=== PATIENT | female | born 2005 | race Hispanic/Latino ===

== ENCOUNTER 2023-04-01 12:23 | Emergency (ER) | payer BC, SELFPAY ==
[2023-04-01 13:35] LABS: Absolute Lymphocytes (CBC) 1.5 K/uL (0.7-4.9); Lymphocytes % 16.3 % (15.3-44.8); MCV 82.4 fL (80-100); MPV 8.6 fL (7.6-11.3); RBC Red Blood Cell Count 3.63 M/uL (3.86-4.86)
[2023-04-01 14:15] LABS: Albumin 3.5 g/dL (3.4-5.0); Bilirubin Total 0.2 mg/dL (0.2-1.0); Potassium 4.3 mEq/L (3.5-5.1); Protein, Total 6.6 g/dL (6.4-8.2); Troponin High Sensitivity 3.1 pg/mL (<58.9)
--- NOTE | 2023-04-01 14:52 | ER ---
Nurse's Notes [facility] Name: Juju Reis Age: 17 yrs Sex: Female : 2005 Arrival Date: 04/01/2023 Time: 12:23 Bed 15 Private MD: Diagnosis: Syncope Presentation: 04/01 12:58 Chief complaint: EMS states: Near syncopal episode while standing at school. Pt felt mb9 light headed, sat in a chair, slipped on wet floor and slid to the ground, denies injury. BGL 97, HR 50s, SB on 12 lead. NS infusing to 20g RAC upon arrival. Coronavirus screen: At this time, the client does not indicate any symptoms associated with coronavirus-19. Ebola Screen: No symptoms or risks identified at this time. Initial Sepsis Screen: Does the patient meet any 2 criteria? No. Patient's initial sepsis screen is negative. Does the patient have a suspected source of infection? No. Patient's initial sepsis screen is negative. Risk Assessment: Do you want to hurt yourself or someone else? Patient reports no desire to harm self or others. Onset of symptoms was April 01, 2023. 12:58 Method Of Arrival: EMS: [facility] mb9 12:58 Acuity: ALEXIS 3 mb9 Triage Assessment: 13:00 General: Appears in no apparent distress. comfortable. nj1 13:00 Pain: Denies pain. nj1 Historical: - Allergies: 13:00 No Known Allergies; mb9 - Home Meds: 13:00 Lexapro Oral [Active]; mb9 - PMHx: 13:00 Anxiety; Depression; mb9 - PSHx: 13:00 None; mb9 - Immunization history:: Adult Immunizations up to date. - Social history:: Smoking status: Patient denies any tobacco usage or history of. - Family history:: not pertinent. Screenin:21 [facility] ED Fall Risk Assessment (Adult) History of falling in the last 3 months, nj1 including since admission No falls in past 3 months (0 pts) Confusion or Disorientation No (0 pts) Intoxicated or Sedated No (0 pts) Impaired Gait No (0 pts) Mobility Assist Device Used No (0 pt) Altered Elimination No (0 pt) Score/Fall Risk Level 0 - 2 = Low Risk Oriented to surroundings, Maintained a safe environment, Hourly rounding (assess needs \T\ fall precautionary measures) done. Abuse screen: Denies threats or abuse. Denies injuries from another. Nutritional screening: No deficits noted. Tuberculosis screening: No symptoms or risk factors identified. Assessment: 13:00 General: Appears in no apparent distress. comfortable, Behavior is calm, cooperative, nj1 appropriate for age. 13:00 Neuro: Level of Consciousness is awake, alert, obeys commands, Oriented to person, nj1 place, time, situation. Cardiovascular: Patient's skin is warm and dry. Respiratory: Airway is patent Respiratory effort is even, unlabored. 14:00 Reassessment: Patient appears in no apparent distress at this time. Patient and/or nj1 family updated on plan of care and expected duration. Pain level reassessed. Patient is alert, oriented x 3, equal unlabored respirations, skin warm/dry/pink. Patient denies pain at this time. Patient states feeling better. Patient states symptoms have improved. 14:53 Reassessment: Patient appears in no apparent distress at this time. Patient and/or nj1 family updated on plan of care and expected duration. Pain level reassessed. Patient is alert, oriented x 3, equal unlabored respirations, skin warm/dry/pink. Patient denies pain at this time. Vital Signs: 12:58 BP 104 / 48; Pulse 56; Resp 16; Temp 98; Pulse Ox 99% on R/A; Weight 55.34 kg; Height 5 mb9 ft. 8 in. ; Pain 0/10; 14:00 BP 94 / 56; Pulse 55; Resp 16; Pulse Ox 100% on R/A; nj1 14:52 BP 107 / 55; Pulse 56; Resp 16; Pulse Ox 100% on R/A; nj1 12:58 Body Mass Index 18.55 (55.34 kg, 172.72 cm) mb9 12:58 Pain Scale: Adult mb9 ED Course: 12:51 Patient arrived in ED. eb 12:53 Chris Griffin MD is Attending Physician. rt 13:00 Triage completed. mb9 13:00 Patient has correct armband on for positive identification. Bed in low position. Call [facility] light in reach. 13:01 Arm band placed on. mb9 13:20 Nichole Winter RN is Primary Nurse. nj1 15:07 No provider procedures requiring assistance completed. IV discontinued, intact, nj1 bleeding controlled. Administered Medications: No medications were administered Medication: 15:07 VIS not applicable for this client. nj1 Outcome: 14:51 Discharge ordered by . rt 15:07 Discharged to home ambulatory, with family. nj1 15:07 Condition: stable 15:07 Discharge instructions given to patient, family, Instructed on discharge instructions, follow up and referral plans. Demonstrated understanding of instructions, follow-up care. 15:08 Patient left the ED. nj1 Signatures: Flores Covington Mary Beth, RN RN mb9 Chris Griffin MD MD rt Nichole Winter RN RN nj1 Corrections: (The following items were deleted from the chart) 13:01 13:00 PMHx: Depressive disorder; delores mb9
--- NOTE | 2023-04-01 14:52 | EDPHYS ---
Physician Documentation [facility] Name: Juju Reis Age: 17 yrs Sex: Female : 2005 Arrival Date: 04/01/2023 Time: 12:23 Bed 15 Private MD: ED Physician Chris Griffin HPI: 04/01 13:24 This 17 yrs old Female presents to ER via EMS with complaints of Syncope. rt 13:24 Patient presents to the ED with a syncopal event. The patient was cutting hair at the [employer] when she became acutely lightheaded, he is down to the ground, had a brief loss of consciousness without head trauma. This episode was brief, she is back to baseline, states she has no complaints currently. Denied any chest pain, shortness of breath. Denies other acute complaints. Patient states that this is happened to her before, last was about 4 years ago.. Historical: - Allergies: 13:00 No Known Allergies; mb9 - Home Meds: 13:00 Lexapro Oral [Active]; mb9 - PMHx: 13:00 Anxiety; Depression; mb9 - PSHx: 13:00 None; mb9 - Immunization history:: Adult Immunizations up to date. - Social history:: Smoking status: Patient denies any tobacco usage or history of. - Family history:: not pertinent. ROS: 13:24 Constitutional: Negative for fever, chills, and weight loss, Cardiovascular: Negative rt for chest pain, palpitations, and edema, Respiratory: Negative for shortness of breath, cough, wheezing, and pleuritic chest pain, Abdomen/GI: Negative for abdominal pain, nausea, vomiting, diarrhea, and constipation, MS/Extremity: Negative for injury and deformity, Skin: Negative for injury, rash, and discoloration, Psych: Negative for depression, anxiety, suicide ideation, homicidal ideation, and hallucinations. 13:24 Neuro: Positive for syncope, near syncope. Exam: 13:24 Constitutional: This is a well developed, well nourished patient who is awake, alert, rt and in no acute distress. Head/Face: Normocephalic, atraumatic. Chest/axilla: Normal chest wall appearance and motion. Nontender with no deformity. No lesions are appreciated. Cardiovascular: Regular rate and rhythm with a normal S1 and S2. No gallops, murmurs, or rubs. Normal PMI, no JVD. No pulse deficits. Respiratory: Lungs have equal breath sounds bilaterally, clear to auscultation and percussion. No rales, rhonchi or wheezes noted. No increased work of breathing, no retractions or nasal flaring. Abdomen/GI: Soft, non-tender, with normal bowel sounds. No distension or tympany. No guarding or rebound. No evidence of tenderness throughout. Skin: Warm, dry with normal turgor. Normal color with no rashes, no lesions, and no evidence of cellulitis. MS/ Extremity: Pulses equal, no cyanosis. Neurovascular intact. Full, normal range of motion. Neuro: Awake and alert, GCS 15, oriented to person, place, time, and situation. Cranial nerves II-XII grossly intact. Motor strength 5/5 in all extremities. Sensory grossly intact. Cerebellar exam normal. Normal gait. Psych: Awake, alert, with orientation to person, place and time. Behavior, mood, and affect are within normal limits. 13:24 ECG was reviewed by the Attending Physician. Vital Signs: 12:58 BP 104 / 48; Pulse 56; Resp 16; Temp 98; Pulse Ox 99% on R/A; Weight 55.34 kg; Height 5 mb9 ft. 8 in. ; Pain 0/10; 14:00 BP 94 / 56; Pulse 55; Resp 16; Pulse Ox 100% on R/A; nj1 14:52 BP 107 / 55; Pulse 56; Resp 16; Pulse Ox 100% on R/A; nj1 12:58 Body Mass Index 18.55 (55.34 kg, 172.72 cm) mb9 12:58 Pain Scale: Adult mb9 MDM: 12:53 Patient medically screened. rt 15:19 Differential Diagnosis Dysrhythmia, symptomatic anemia, electrolyte disturbance, rt vasovagal syncope, dehydration. Data reviewed: vital signs, nurses notes, lab test result(s), EKG. Consideration of Admission/Observation Escalation of care including admission/observation considered. Test considered but Not performed: CT: Patient is PE RC negative, does not require CT angiogram to rule out pulmonary embolism. Counseling: I had a detailed discussion with the patient and/or guardian regarding: the historical points, exam findings, and any diagnostic results supporting the discharge/admit diagnosis, lab results, the need for outpatient follow up, to return to the emergency department if symptoms worsen or persist or if there are any questions or concerns that arise at home. Response to treatment: the patient's symptoms have resolved after treatment. 04/01 13:02 Order name: CBC with Diff; Complete Time: 14:09 rt 04/01 13:02 Order name: CMP; Complete Time: 14:17 rt 04/01 13:02 Order name: Troponin High Sensitivity; Complete Time: 14:17 rt 04/01 13:02 Order name: Magnesium; Complete Time: 14:17 rt 04/01 13:02 Order name: Test, Serum; Complete Time: 14: rt 04/01 13:02 Order name: EKG; Complete Time: 13: rt 04/01 13:02 Order name: EKG - Nurse/Tech; Complete Time: 13:21 rt EC:24 Rate is 51 beats/min. Rhythm is regular, Sinus bradycardia with No ectopy. QRS [place] is rt Normal. CO interval is normal. QRS interval is normal. QT interval is normal. No Q waves. T waves are Normal. No ST changes noted. Interpreted by me. Administered Medications: No medications were administered Disposition Summary: 04/01/23 14:51 Discharge Ordered Location: Home rt Problem: new rt Symptoms: are resolved rt Condition: Stable rt Diagnosis - Syncope rt Followup: rt - With: Private Physician - When: 2 - 3 days - Reason: Discharge Instructions: - Discharge Summary Sheet rt - Syncope rt Forms: - Medication Reconciliation Form rt - Thank You Letter rt - Antibiotic Education rt - Prescription Opioid Use rt Signatures: Dispatcher [employer] Arianna Al RN RN [email or web address] Chris Griffin MD MD rt Corrections: (The following items were deleted from the chart) 13:01 13:00 PMHx: Depressive disorder; delores estrella
[2023-04-01 15:27] VITALS: TEMP 98
[2023-04-01 15:28] VITALS: O2SAT 100
[2023-04-01 15:30] VITALS: BP 107/55
--- NOTE | 2023-04-03 14:21 | EKG ---
Test Date: 2023-04-01 Test Time: 13:18:08 Throw Out Clerk: PRAVEEN MEASUREMENT RESULTS: Intervals: Rate: 51 NH: 148 QRSD: 98 QT: 394 QTc: 363 [place]: P: 35 NH: 148 QRS: 68 T: 35 INTERPRETIVE STATEMENTS: Sinus bradycardia Otherwise normal ECG No previous ECG available for comparison Electronically Signed On 04-03-23 14:17:47 CDT by Michael Barclay
== END 2023-04-01 15:08 | disposition home or self-care (01) ==
LOC: ER 12:23
DX: R55 Syncope and collapse (principal); F41.9 Anxiety disorder, unspecified; F32.A Depression, unspecified
CPT/HCPCS: 36415; 80053; 83735; 84484; 84703; 85025; 93005; 99283

== ENCOUNTER 2024-02-26 15:29 | Emergency (ER) | payer BC ==
[2024-02-26 16:35] LABS: Absolute Basophils 0.1 K/uL (0-0.5); Absolute Eosinophils 0.1 K/uL (0-0.5); Absolute Lymphocytes (CBC) 1.7 K/uL (0.7-4.9); Absolute Monocytes 0.8 K/uL (0.1-1.3); Absolute Neutrophil 5.7 K/uL (1.8-8.0); Basophils % 0.7 % (0-1.3); Eosinophils % 1.4 % (0-4.4); Hematocrit 35.7 % (36.0-45.0); Hemoglobin 11.9 g/dL (12.0-15.0); Lymphocytes % 20.4 % (15.3-44.8); MCH 27.2 pg (27.0-35.0); MCHC 33.2 g/dL (32.0-36.0); MPV 7.8 fL (7.6-11.3); Monocytes % 9.5 % (3.3-12.3); Nucleated Red Blood Cells % 0.4 % (0-0); Platelets 366 thou/uL (152-406); RBC Red Blood Cell Count 4.35 M/uL (3.86-4.86); Red Cell Distribution Width 16.8 % (12.1-15.2)
[2024-02-26 16:49] LABS: PT Prothrombin Time 13.3 SECONDS (9.5-12.5); PTT, Activated Partial Thromb 35.1 SECONDS (24.3-36.9); Protime INR 1.22
[2024-02-26 17:02] LABS: ALT/SGPT 20 U/L (13-56); AST/SGOT 8 U/L (15-37); Albumin 3.9 g/dL (3.4-5.0); Albumin/Globulin Ratio 1.1 (1.1-1.8); Alkaline Phosphatase 63 U/L (45-117); Anion Gap 6.9 mEq/L (5.0-15.0); BUN Blood Urea Nitrogen 13 mg/dL (7-18); Bicarbonate 25 mEq/L (21-32); Bilirubin Direct 0.1 mg/dL (0-0.2); Bilirubin Indirect, Calculated 0.4 mg/dL (0.2-0.8); Bilirubin Total 0.5 mg/dL (0.2-1.0); Globulin 3.5 g/dL (2.3-3.5); Glomerular Filtration Rate 81 ml/min (=/>90); Glucose Level 93 mg/dL (74-106); Potassium 3.9 mEq/L (3.5-5.1); Protein, Total 7.4 g/dL (6.4-8.2); Sodium Level 136 mEq/L (136-145)
--- NOTE | 2024-02-26 17:27 | ER ---
Nurse's Notes [facility] Name: Juju Reis Age: 18 yrs Sex: Female : 2005 Arrival Date: 02/26/2024 Time: 15:29 Bed 14 Private MD: Diagnosis: bipolar disorder with triston and associated psychotic features Presentation: 02/25 15:45 Chief complaint: Patient states: feels like she is having schizophrenia and her DID is nj1 acting up for about a week. States she cannot be in crowds, feels like they are coming to get her. Denies verbal, visual hallucinations. Denies SI/HI. 15:45 Coronavirus screen: Vaccine status: Patient reports receiving the 2nd dose of the covid nj1 vaccine. Ebola Screen: Patient denies travel to an Ebola-affected area in the 21 days before illness onset. Initial Sepsis Screen: Does the patient meet any 2 criteria? No. Patient's initial sepsis screen is negative. Does the patient have a suspected source of infection? No. Patient's initial sepsis screen is negative. Risk Assessment: Do you want to hurt yourself or someone else? Patient reports no desire to harm self or others. Onset of symptoms was January 2024. 15:45 Method Of Arrival: Ambulatory [facility] 15:45 Acuity: ALEXIS 3 nj1 Historical: - Allergies: 15:58 No Known Allergies; nj1 - PMHx: 15:58 Anxiety; Depression; Bipolar disorder; DID; nj1 - Immunization history:: Client reports receiving the 2nd dose of the Covid vaccine. - Infectious Disease History:: Denies. - Social history:: Smoking status: Patient reports the use of cigarette tobacco products, one a day. Screenin:31 [facility] ED Fall Risk Assessment (Adult) History of falling in the last 3 months, as6 including since admission No falls in past 3 months (0 pts) Confusion or Disorientation No (0 pts) Intoxicated or Sedated No (0 pts) Impaired Gait No (0 pts) Mobility Assist Device Used No (0 pt) Altered Elimination No (0 pt) Score/Fall Risk Level 0 - 2 = Low Risk Oriented to surroundings, Maintained a safe environment, Educated pt \\T\\ family on fall prevention, incl call for assistance when getting out of bed, Assessed \\T\\ reinforced patient's understanding of fall precautions. Abuse screen: Denies threats or abuse. Denies injuries from another. Nutritional screening: No deficits noted. Tuberculosis screening: No symptoms or risk factors identified. Assessment: 16:18 General: Appears in no apparent distress. comfortable, Behavior is calm, cooperative. as6 Pain: Denies pain. Neuro: Level of Consciousness is awake, alert, obeys commands, Oriented to person, place, time, situation. Cardiovascular: Capillary refill < 3 seconds Patient's skin is warm and dry. Respiratory: Respiratory effort is even, unlabored, Respiratory pattern is regular, symmetrical. GI: No deficits noted. No signs and/or symptoms were reported involving the gastrointestinal system. : No deficits noted. No signs and/or symptoms were reported regarding the genitourinary system. EENT: No deficits noted. No signs and/or symptoms were reported regarding the EENT system. Derm: Skin is intact, is healthy with good turgor. Musculoskeletal: Circulation, motion, and sensation intact. 17:56 General: report given to Juliann . as6 Psych: 15:45 [place] Suicide Severity Screening: In the past month, have you wished you were as6 or wished you could go to sleep and not wake up? Patient responds "No." "In the past month, have you actually had any thoughts of killing yourself?" Patient responds "no." "In your lifetime, have you ever done anything, started to do anything, or prepared to do anything to end your life?" Patient responds "no.". 15:45 Subjective: Patient's mood is appropriate Delusions are denied, Hallucinations are as6 auditory, visual, Having thoughts of denies SI or HI. Objective: Patient is cooperative, Speech is normal, Affect is appropriate, Patient has mutilated themselves by none noted. Interventions: not needed at this time. Safety Checks: Personal items have been removed. Door is open. Visitors are present. Pt denies substance abuse. Commitment: Patient will be a voluntary commitment. Vital Signs: 15:45 BP 153 / 86; Pulse 76; Resp 18; Temp 97.4; Pulse Ox 98% on R/A; Weight 58.97 kg; Height nj1 5 ft. 8 in. ; 18:38 BP 147 / 64; Pulse 71; Resp 18; Temp 98.4; Pulse Ox 100% ; as6 15:45 Body Mass Index 19.77 (58.97 kg, 172.72 cm) or1 ED Course: 15:35 Patient arrived in ED. im 15:44 Ashlyn Barr PA-C is PHCP. sb4 15:44 Kandy Heard MD is Attending Physician. sb4 15:58 Triage completed. nj1 16:03 Arm band placed on left wrist. nj1 16:04 Gerald Cannon, MARCO is Primary Nurse. as6 16:29 Inserted saline lock: 20 gauge in right antecubital area, using aseptic technique. as6 Blood collected. 16:30 Acetaminophen Sent. as6 16:30 Basic Metabolic Panel Sent. as6 16:30 CBC with Diff Sent. as6 16:30 ETOH Level Sent. as6 16:30 PT-INR Sent. as6 16:30 Hepatic Function Sent. as6 16:30 Salicylate Sent. as6 16:30 Ptt, Activated Sent. as6 16:33 Bed in low position. as6 17:00 faxed patient clinicals to the following facilities in the attempt to find placement/ [facility]. 17:10 Test, Urine Sent. as6 17:10 Urinalysis w/ reflexes Sent. as6 17:10 Urine Drug Screen Sent. as6 17:56 connected Juliann Peng from [facility] for patient transfer consultation. eb 18:08 administrative approval given by Janeen Roche/ patient has been accepted to [facility]/ Dr. Flowers has accepted the patient in transfer without conference with Ashlyn Austin/. 18:30 [facility] called for transport. eb 18:38 Provided Education on: need for transfer. as6 18:38 No provider procedures requiring assistance completed. as6 18:40 IV discontinued, intact, bleeding controlled, No redness/swelling at site. Pressure as6 dressing applied. Administered Medications: No medications were administered Medication: 16:31 VIS not applicable for this client. as6 Outcome: 17:26 ER care complete, transfer ordered by . sb4 18:38 Condition: stable as6 18:38 Instructed on the need for transfer, 18:52 Transferred by ground EMS Transfer form completed. as6 18:54 Patient left the ED. as6 Signatures: Flores Covington Ashby, MARCO RN as6 Ashlyn Barr PA-C PAGely sb4 Nichole Winter RN RN nj1 Yola Peralta Corrections: (The following items were deleted from the chart) 16:33 15:45 [place] Suicide Severity Screening: In the past month, have you wished you were as6 or wished you could go to sleep and not wake up? Patient responds "No." "In the past month, have you actually had any thoughts of killing yourself?" Patient responds "no." "In your lifetime, have you ever done anything, started to do anything, or prepared to do anything to end your life?" Patient responds "no." as6
--- NOTE | 2024-02-26 17:27 | EDPHYS ---
Physician Documentation [facility] Name: Juju Ries Age: 18 yrs Sex: Female : 2005 Arrival Date: 02/26/2024 Time: 15:29 Bed 14 Private MD: ED Physician Kandy Heard HPI: 02/25 17:20 This 18 yrs old Female presents to ER via Ambulatory with complaints of Psych sb4 Problem. 17:20 patient with history of bipolar disorder, dissociative identity disorder, and sb4 schizophrenia presents with paranoia, depression, and aggressive behavior. she has not been taking her medications for 1.5 months now because she felt like they were not helping. she has not seen her psychiatrist since. family states that she has been acting very abnormally- suddenly quit her job, hallucinating, and exhibiting aggressive behavior. patient is not aware that she in the ER during my assessment, thinks she's at the psychiatrist's office. denies any suicidal or homicidal ideation. Historical: - Allergies: 15:58 No Known Allergies; nj1 - PMHx: 15:58 Anxiety; Depression; Bipolar disorder; DID; nj1 - Immunization history:: Client reports receiving the 2nd dose of the Covid vaccine. - Infectious Disease History:: Denies. - Social history:: Smoking status: Patient reports the use of cigarette tobacco products, one a day. ROS: 17:20 Constitutional: Negative for fever, chills, and weight loss, sb4 17:20 Psych: Positive for anxiety, depression, visual hallucinations, 17:20 All other systems are negative, Exam: 17:20 Constitutional: This is a well developed, well nourished patient who is awake, alert, sb4 and in no acute distress. Head/Face: Normocephalic, atraumatic. Eyes: Extra-ocular motions intact. Periorbital areas with no swelling, redness, or edema. ENT: Mucous membranes moist. Skin: Warm, dry with normal turgor. Normal color with no rashes, no lesions, and no evidence of cellulitis. MS/ Extremity: Pulses equal, no cyanosis. Neurovascular intact. Full, normal range of motion. Neuro: Awake and alert, GCS 15, oriented to person, place, time, and situation. Motor strength 5/5 in all extremities. Sensory grossly intact. 17:20 Psych: Behavior/mood is cooperative, delirious, Affect is calm, Oriented to person, time, Not oriented to place, Patient has no thoughts/intents to harm self or others. Judgement / Insight is impaired. Vital Signs: 15:45 BP 153 / 86; Pulse 76; Resp 18; Temp 97.4; Pulse Ox 98% on R/A; Weight 58.97 kg; Height nj1 5 ft. 8 in. ; 18:38 BP 147 / 64; Pulse 71; Resp 18; Temp 98.4; Pulse Ox 100% ; as6 15:45 Body Mass Index 19.77 (58.97 kg, 172.72 cm) nj1 MDM: 15:54 Patient medically screened. sb4 17:20 Data reviewed: vital signs, nurses notes, lab test result(s), EKG, radiologic studies. sb4 Counseling: I had a detailed discussion with the patient and/or guardian regarding the historical points, exam findings, and any diagnostic results supporting the discharge/admit diagnosis, lab results, the need to transfer to another facility, [facility] does not immediately have the required specialist. 02/25 16:13 Order name: Acetaminophen; Complete Time: 17:11 4 02/25 16:13 Order name: Basic Metabolic Panel; Complete Time: 17:11 02/25 16:13 Order name: CBC with Diff; Complete Time: 16:56 02/25 16:13 Order name: ETOH Level; Complete Time: 17:11 4 02/25 16:13 Order name: Hepatic Function; Complete Time: 17:11 02/25 16:13 Order name: PT-INR; Complete Time: 16:56 02/25 16:13 Order name: Test, Urine; Complete Time: 17:29 4 02/25 16:13 Order name: Ptt, Activated; Complete Time: 16:56 4 02/25 16:13 Order name: Salicylate; Complete Time: 17:11 4 02/25 16:13 Order name: Urinalysis w/ reflexes; Complete Time: 17:30 sb4 02/25 16:13 Order name: Urine Drug Screen; Complete Time: 17:30 02/25 16:13 Order name: EKG - Nurse/Tech; Complete Time: 16:46 sb4 02/25 16:13 Order name: IV Saline Lock; Complete Time: 16:30 sb4 02/25 16:13 Order name: Labs collected and sent; Complete Time: 16:30 sb4 02/25 16:13 Order name: Suicide Screening ([place]); Complete Time: 16:30 sb4 EC:56 Rate is 65 beats/min. Rhythm is regular, Sinus arrythmia. NV interval is normal at 140 sb4 msec. QRS interval is normal at 90 msec. QT interval is normal at 368 msec. Clinical impression: No evidence of ischemia. Interpreted by me. Reviewed by me. Administered Medications: No medications were administered Disposition: 18:00 I reviewed the patient's care provided by the Advanced Practice Provider and agree with gb1 the diagnosis and treatment plan. Disposition Summary: 02/26/24 17:26 Transfer Ordered Notes: Transfer Location: Psych Facility sb4 Reason: Higher level of care sb4 Condition: Fair sb4 Problem: new sb4 Symptoms: are unchanged sb4 Accepting Physician: psychi(02/26/24 18:54) as6 Diagnosis - bipolar disorder with triston and associated psychotic features sb4 Forms: - Medication Reconciliation Form sb4 - SBAR form sb4 Signatures: Dispatcher [employer] Gerald Bean RN RN as6 Ashlyn Barr PA-C PA-C sb4 Nichole Winter RN RN nj1 Kandy Heard MD MD gb1 Corrections: (The following items were deleted from the chart) 18:54 17:26 psychi sb4 as6
[2024-02-26 17:29] LABS: Sqamous Epithelial <5 /HPF (None Seen); Urine Bacteria None Seen /HPF (<20); Urine Bilirubin NEGATIVE (Negative); Urine Blood Negative (Negative); Urine Clarity Extremely Turbid (Clear); Urine Color Light-Yellow (Yellow); Urine Culture Reflex Order NOT NEEDED; Urine Glucose NEGATIVE (Negative); Urine Ketones NEGATIVE (Negative); Urine Microscopic Reflex YN ORDER UMIC; Urine Mucus Slight /HPF (None Seen); Urine Nitrite NEGATIVE (Negative); Urine Protein NEGATIVE (Negative); Urine RBC <5 /HPF (None Seen); Urine Urobilinogen 1+ (Normal); Urine WBC <5 /HPF (<5)
[2024-02-26 17:30] LABS: Barbiturates NEGATIVE (NEGATIVE); Benzodiazepines POSITIVE (NEGATIVE); Cocaine NEGATIVE (NEGATIVE); METHAMPHETAM NEGATIVE (NEGATIVE); Methadone NEGATIVE (NEGATIVE); Opiates NEGATIVE (NEGATIVE); Phencyclidine NEGATIVE (NEGATIVE); THC Cannibis POSITIVE (NEGATIVE)
[2024-02-26 19:04] VITALS: BP 147/64; TEMP 98.4; O2SAT 100
--- NOTE | 2024-02-27 12:56 | EKG ---
Test Date: 2024-02-26 Test Time: 16:43:47 Supply Chain Consultant: MEASUREMENT RESULTS: Intervals: Rate: 65 SD: 140 QRSD: 90 QT: 368 QTc: 382 [place]: P: 52 SD: 140 QRS: 87 T: 44 INTERPRETIVE STATEMENTS: Normal sinus rhythm with sinus arrhythmia Nonspecific T wave abnormality Abnormal ECG Compared to ECG 04/01/2023 13:18:08 T-wave abnormality now present Sinus bradycardia no longer present Electronically Signed On 02-27-24 12:54:50 CDT by Michael Barclay
== END 2024-02-26 18:54 ==
LOC: ER 15:29
DX: F31.2 Bipolar disorder, current episode manic severe with psychotic features (principal); F17.210 Nicotine dependence, cigarettes, uncomplicated
CPT/HCPCS: 36415; 80048; 80076; 80143; 80179; 80307; 81001; 81025; 82077; 85025; 85610; 85730; 93005; 99285

== ENCOUNTER 2024-10-09 20:36 | Emergency (ER) | payer OTHER ==
--- OUTSIDE RECORDS SUMMARY | 2024-10-09 20:38 | XMS REPORT | Continuity of Care Document ---
Author Name Unknown Address [address] [facility]. [address] th[address] Address 1200 [facility]. 1 [address] [place] [address] Care Team Providers Care Portable Sawyer Name Role Phone LAB90 Attending Clinician Unavailable CLARE LANDRUM Attending Clinician Unavailable ANTONIO PAREDES Attending Clinician Unavailable Payers Payer Name Policy Type Policy Number Effective Date Expirati on Date Source [facility] KP LUTZ [employer]AY FOCUS 9 [id number] 2024 00:00:00 Social History Social Habit Start Date Stop Date Quantity Comments Source ASSERTION Not Christiana Gaspar - External History of tobacco use Cigarette Smoker Christiana matias - External Sexual orientation Jeff Gaspar - External Alcoholic beverage intake 2024-10-04 00:00:00 2024-10-04 00:00:00 Ex-drinker (finding) Christiana Gaspar - External History of Social function 2024-10-04 00:00:00 2024-10-04 00:00:00 Christiana Gaspar - External Sex 2024-03-20 20:02:31 2024-03-20 20:02:31 Female (finding) Christiana Gaspar - External Sex assigned at 2005 00:00:00 2005 00:00:00 Christiana Vargasmehdipolly - External Smoking Status Start Date Stop Date Source Ex-smoker 2024-04-19 00:00:00 2024-04-19 00:00:00 Jeff phillips Semehdipolly - External Medications Ordered Medication Name Filled Medication Name Start Date Stop Date Current Medication? Ordering Clinician Indication Dosage Frequency Signature (SIG) Comments Components Source Escitalopra m Oxalate 10 MG oral Tablet 04-06 00:00: 00 10-04 00:00 :00 No TAKE 1 TABLET BY MOUTH THREE TIMES DAILY FOR DEPRESSION . Christiana Gaspar - Externa l hydrOXYzine Pamoate 25 MG oral Capsule 04-06 00:00: 00 10-04 00:00 :00 No TAKE 1 CAPSULE BY MOUTH THREE TIMES DAILY NEEDED FOR ANXIETY Christiana Gaspar - Externa l Haloperidol 1 MG oral Tablet 03-07 00:00: 00 10-04 00:00 :00 No TAKE 2 TABLETS BY MOUTH TWICE DAILY FOR PSYCHOSIS Christiana Krugera damaris Vital Signs Vital Name Observation Time Observation Value Comments S ource Systolic blood pressure 2024-10-04 16:02:00 105 mm[Hg] Christianaroney Layo ld - External Diastolic blood pressure 2024-10-04 16:02:00 68 mm[Hg] Christiana Lyao ld - External Heart rate 2024-10-04 16:02:00 61 /min Perez y Seybold - External Body temperature 2024-10-04 16:02:00 36.11 Ashly Christiana Gaspar - External Respiratory rate 2024-10-04 16:02:00 16 /min Christiana Vargasybold - External Body height 2024-10-04 16:02:00 175.3 cm Naz ey Seybold - External Body weight 2024-10-04 16:02:00 58.968 kg Naz ey Seybold - External BMI 2024-10-04 16:02:00 19.20 kg/m2 Naz ey Seybold - External Body height 2024-04-19 14:15:00 172.7 cm Naz ey Seybold - External Body weight 2024-04-19 14:15:00 58.968 kg Naz ey Seybold - External BMI 2024-04-19 14:15:00 19.77 kg/m2 Naz couch Semehdiold - External Encounters Start Date/Time End Date/Time Encounter Type Admission Type Attending [facility] Care Department Encounter ID Source 2024-10-04 11:20:00 2024-10-04 11:20:00 Outpatient LAB90 CHRISTIANA BLUNT [id number] Christiana Gaspar 2024-10-04 10:00:00 2024-10-04 10:00:00 Outpatient CLARE LANDRUM [id number] Christiana Gaspar 2024-05-08 11:15:00 2024-05-08 11:15:00 Outpatient ANTONIO PAREDES [id number] Christiana Gaspar 2024-04-19 09:15:00 2024-04-19 09:15:00 Outpatient ANTONIO PAREDES [id number] Christiana Gaspar
[2024-10-09] MEDS ORDERED: WATER FOR INJ,STERILE 10 ML ONE (21:17)
[2024-10-09 22:04] LABS: Absolute Eosinophils 0.1 K/uL (0-0.5); Absolute Lymphocytes (CBC) 2.3 K/uL (0.7-4.9); Absolute Monocytes 0.6 K/uL (0.1-1.3); Absolute Neutrophil 4.1 K/uL (1.8-8.0); Basophils % 0.7 % (0-1.3); Eosinophils % 2.1 % (0-4.4); Hematocrit 35.3 % (36.0-45.0); Hemoglobin 11.4 g/dL (12.0-15.0); Lymphocytes % 31.8 % (15.3-44.8); MCHC 32.2 g/dL (32.0-36.0); MCV 83.9 fL (80-100); MPV 8.7 fL (7.6-11.3); Monocytes % 8.5 % (3.3-12.3); Neutrophils % 56.9 % (41.7-73.7); Platelets 375 thou/uL (152-406); RBC Red Blood Cell Count 4.21 M/uL (3.86-4.86); Red Cell Distribution Width 16.3 % (12.1-15.2)
[2024-10-09 22:11] LABS: PT Prothrombin Time 11.7 SECONDS (9.4-12.5); Protime INR 1.05
[2024-10-09 22:35] LABS: ALT/SGPT 18 U/L (13-56); AST/SGOT 15 U/L (15-37); Albumin 3.9 g/dL (3.4-5.0); Albumin/Globulin Ratio 1.1 (1.1-1.8); Alkaline Phosphatase 57 U/L (45-117); Anion Gap 9.6 mEq/L (5.0-15.0); BUN Blood Urea Nitrogen 20 mg/dL (7-18); Bicarbonate 24 mEq/L (21-32); Bilirubin Total 0.2 mg/dL (0.2-1.0); Globulin 3.5 g/dL (2.3-3.5); Glomerular Filtration Rate 79 ml/min (=/>90); Glucose Level 90 mg/dL (74-106); Potassium 3.6 mEq/L (3.5-5.1); Protein, Total 7.4 g/dL (6.4-8.2); Sodium Level 140 mEq/L (136-145)
[2024-10-09 22:39] LABS: Bilirubin Direct < 0.2 mg/dL (0-0.2)
[2024-10-09 22:55] LABS: Specific Gravity 1.015 (1.005-1.030)
[2024-10-09 23:03] LABS: Specific Gravity 1.015 (1.005-1.030); Urine Bilirubin NEGATIVE (Negative); Urine Blood Negative (Negative); Urine Clarity Turbid (Clear); Urine Color Colorless (Yellow); Urine Glucose NEGATIVE (Negative); Urine Ketones NEGATIVE (Negative); Urine Microscopic Reflex YN NO UMIC; Urine Nitrite NEGATIVE (Negative); Urine Protein NEGATIVE (Negative); Urine Urobilinogen Normal (Normal)
[2024-10-09 23:04] LABS: Barbiturates NEGATIVE (NEGATIVE); Benzodiazepines NEGATIVE (NEGATIVE); Cocaine NEGATIVE (NEGATIVE); METHAMPHETAM NEGATIVE (NEGATIVE); Methadone NEGATIVE (NEGATIVE); Opiates NEGATIVE (NEGATIVE); Phencyclidine NEGATIVE (NEGATIVE); THC Cannibis POSITIVE (NEGATIVE)
--- NOTE | 2024-10-10 02:00 | ER ---
Nurse's Notes [facility] Name: Juju Reis Age: 19 yrs Sex: Female : 2005 Arrival Date: 10/09/2024 Time: 20:36 Bed 19 Private MD: Diagnosis: Restlessness and agitation;Delusional disorder, restlessness and agitation, emotional upset, disruptive and violent behavior Presentation: 10/09 20:36 Coronavirus screen: At this time, the client does not indicate any symptoms associated kj2 with coronavirus-19. Ebola Screen: No symptoms or risks identified at this time. Initial Sepsis Screen: Does the patient meet any 2 criteria? No. Patient's initial sepsis screen is negative. Does the patient have a suspected source of infection? No. Patient's initial sepsis screen is negative. Risk Assessment: Do you want to hurt yourself or someone else? Patient reports no desire to harm self or others. Onset of symptoms was October 09, 2024. 20:36 Method Of Arrival: Ambulatory kj2 20:36 Acuity: ALEXIS 2 lg3 20:36 Note pt in lobby throwing chairs and side tables at this time. pt police notified. lg3 family in lobby state that pt has recently become very combative, volatile, uncooperative and self harming at home. also states that pt has recently been diagnosed with bipolar disorder and unaware if pt is taking prescribed medication. Triage Assessment: 21:14 General: Appears distressed, Behavior is agitated, anxious, combative, flat, restless, jp4 uncooperative, Patient family member, dad and aunt, brings patient in due to patient becoming escalated and aunt fearful. Aunt states that the patient has been acting aggressive, and yesterday diagnosed with being bipolar. Aunt states that she has been previously treated for psychiatric disorders. . Pain: Complains of pain in right hand and left hand - multiple small superficial abrasions to bilat hands. Neuro: Level of Consciousness is awake, alert, Oriented to person, place, time, situation, Speech is normal. Neuro:. Cardiovascular: Denies chest pain, diaphoresis, fatigue, lightheadedness, nausea, palpitations, shortness of breath, syncope, vomiting. Respiratory: No deficits noted. Airway is patent Trachea midline Respiratory effort is even, unlabored, Respiratory pattern is regular, symmetrical. Historical: - Home Meds: 21:10 Lexapro Oral [Active]; kj2 - PMHx: 21:12 Anxiety; Bipolar disorder; Depression; DID; kj2 - Immunization history:: Adult Immunizations unknown. - Infectious Disease History:: Denies. - Social history:: Smoking status: unknown. - Family history:: not pertinent. Screenin:04 [facility] ED Fall Risk Assessment (Adult) Confusion or Disorientation No (0 pts) lg3 Intoxicated or Sedated No (0 pts). 21:14 [facility] ED Fall Risk Assessment (Adult) History of falling in the last 3 months, kj2 including since admission No falls in past 3 months (0 pts). [facility] ED Fall Risk Assessment (Adult) Impaired Gait No (0 pts) Mobility Assist Device Used No (0 pt) Altered Elimination No (0 pt) Score/Fall Risk Level 0 - 2 = Low Risk Maintained a safe environment, Hourly rounding (assess needs \\T\\ fall precautionary measures) done. Abuse screen: Denies threats or abuse. Denies injuries from another. Nutritional screening: No deficits noted. Tuberculosis screening: No symptoms or risk factors identified. Assessment: 21:04 General: MD, CNO, Charge nurse and [employer] at bedside. pt refusing all interventions/care lg3 at this time . Neuro: Marr Agitation-Sedation Scale (RASS): +3 Very Agitated Level of Consciousness is awake, alert, Oriented to person, place, time, situation. Cardiovascular: No deficits noted. Capillary refill < 3 seconds Clubbing of nail beds is absent JVD is absent Patient's skin is warm and dry. Respiratory: No deficits noted. Airway is patent Respiratory effort is even, unlabored, Respiratory pattern is regular, symmetrical. GI: No signs and/or symptoms were reported involving the gastrointestinal system. Abdomen is round non-distended. : No signs and/or symptoms were reported regarding the genitourinary system. EENT: No signs and/or symptoms were reported regarding the EENT system. Derm: Skin is intact, is healthy with good turgor, Skin is dry, Skin is normal, Skin temperature is warm Wound noted right hand and left hand Wound is superficial linear abrasions noted to bilateral hands. Musculoskeletal: No signs and/or symptoms reported regarding the musculoskeletal system. Circulation, motion, and sensation intact. Range of motion: intact in all extremities. 22:00 Reassessment: Patient and/or family updated on plan of care and expected duration. Pain kj2 level reassessed. Patient is alert, oriented x 3, equal unlabored respirations, skin warm/dry/pink. Patient states symptoms have improved. 23:00 Reassessment: Patient appears in no apparent distress at this time. Patient and/or kj2 family updated on plan of care and expected duration. Pain level reassessed. Patient is alert, oriented x 3, equal unlabored respirations, skin warm/dry/pink. 10/10 00:00 Reassessment: Patient appears in no apparent distress at this time. Patient and/or kj2 family updated on plan of care and expected duration. Pain level reassessed. Patient is alert, oriented x 3, equal unlabored respirations, skin warm/dry/pink. eyes closed, resting comfortably. Family at bedside. 01:00 Reassessment: Patient appears in no apparent distress at this time. Patient and/or kj2 family updated on plan of care and expected duration. Pain level reassessed. Patient is alert, oriented x 3, equal unlabored respirations, skin warm/dry/pink. 02:00 Reassessment: Patient appears in no apparent distress at this time. Patient and/or kj2 family updated on plan of care and expected duration. Pain level reassessed. Patient is alert, oriented x 3, equal unlabored respirations, skin warm/dry/pink. 03:00 Reassessment: Patient appears in no apparent distress at this time. Patient and/or kj2 family updated on plan of care and expected duration. Pain level reassessed. Patient is alert, oriented x 3, equal unlabored respirations, skin warm/dry/pink. 03:20 Reassessment: Patient appears in no apparent distress at this time. Patient is alert, kj2 oriented x 3, equal unlabored respirations, skin warm/dry/pink. Psych: 10/09 21:04 Safety Checks: Personal items have been removed. Door is open. No visitors are present lg3 at this time. 21:14 [place] Suicide Severity Screening: "In the past month, have you actually had any jp4 thoughts of killing yourself?" Patient responds "yes." Patient family states that the patient was making statements about killing self. Registration called stating that the patient was causing a disruption in the waiting room, throwing chairs and turning tables over. [place] called and royal ZELAYA called. Patient continued to act out, throwing phone and watch toward the direction of other patients in the waiting room. Objective: Patient is aggressive, challenging, combative. Interventions: Removed personal items and placed in bag. Phone and watch given to patient's father. Pt denies substance abuse. Commitment: Roayl ZELAYA at bedside. Requesting CHARLES. 21:14 [place] Suicide Severity Screening: In the past month, have you wished you were lg3 or wished you could go to sleep and not wake up? Patient responds "yes." "In your lifetime, have you ever done anything, started to do anything, or prepared to do anything to end your life?" Patient responds "yes." Patient reports suicidal intent within 3 past months. 21:46 Subjective: Patient's mood is Patient appears very angry and challenging in behavior. jp4 Vital Signs: 21:04 lg3 22:29 BP 130 / 52; Pulse 75; Resp 15; Temp 97.8(T); Pulse Ox 99% on R/A; Weight 58.97 kg; ty Height 5 ft. 8 in. ; Pain 11/09; 10/10 03:20 BP 110 / 70; Pulse 70; Temp 98.2(T); Pulse Ox 99% ; ty 10/09 22:29 Body Mass Index 19.77 (58.97 kg, 172.72 cm) ty 22:29 Pain Scale: Adult ty 10/09 21:04 patient is refusing vital signs at this time. aware. Will re-attempt once the lg3 patient appears more calm and willing to participate in care [place] Score: 10/10 01:54 Eye Response: spontaneous(4). Motor Response: obeys commands(6). Verbal Response: sp4 confused(4). Total: 14. ED Course: 10/09 20:41 Patient arrived in ED. ss 20:48 Charles Barnes MD is Attending Physician. sp4 21:04 Safety Checks: Personal items have been removed. The door is open or patient has been lg3 placed in a hallway bed/chair. There are no family/friend visitors at this time Sitter present at this time. 21:04 Arm band placed on right wrist. lg3 21:07 Michelle Doran, RN is Primary Nurse. kj2 21:14 Appears agitated. Appears angry. Appears restless. jp4 21:15 Triage completed. kj2 21:15 Patient has correct armband on for positive identification. Bed in low position. kj2 Provided Education on: safety precautions. 21:15 Safety checks: Items removed: yes. Door open/sign placed on door: yes. Family/friend ty present: yes. Family/friends encouraged to stay with patient. Sitter present: Yes. Patient has correct armband on for positive identification. Placed in gown. Bed in low position. Valuables Given to family. See valuables checklist. Noise minimized. Lights dimmed. Warm blanket given. Pillow given. Head of bed elevated. Sitter at bedside. 21:39 Notified Charge Nurse of While talking to patient, patient observed an elder patient in ty a stretcher get be transported behind me. Patient stated "That is how I am trying to be." When patient asked "You want to be old?" Patient stated "No, I want to be ." Patient was advised the patient in the stretcher was in fact still with the living, Patient stated "Well then make me old so I can sooner.". 21:48 Initial lab(s) drawn, by me, sent to lab. Inserted saline lock: 22 gauge in right ty antecubital area, using aseptic technique. Blood collected. Flushed with 10 mL NS. 22:29 Assisted to bathroom. kj2 22:32 Urine collected: clean catch specimen, clear. ty 10/10 02:03 faxed pt clinical to various psych facilities. kmf 02:08 EKG done, by ED staff. vk 02:10 per Emily LARA pt has agreed to transfer without transfer warrant. kmf 02:15 pt was accepted to [facility]. Morris Spicer \\T\\0215. Kia Mar admin \\T\\ km 0215. Number for nurse to nurse report [phone]. 03:30 IV discontinued, intact, bleeding controlled, No redness/swelling at site. Pressure ty dressing applied. 03:30 No provider procedures requiring assistance completed. lg3 Administered Medications: 10/09 21:27 Drug: Geodon IM 40 mg IM once Route: IM; Site: left gluteus; lg3 22:02 Follow up: Response: No adverse reaction kj2 Medication: 21:15 VIS not applicable for this client. kj2 Outcome: 10/10 01:59 ER care complete, transfer ordered by . sp4 03:30 Transferred by ground EMS Transfer form completed. Note: [address] 03:30 Condition: stable 03:30 Instructed on the need for transfer, Demonstrated understanding of instructions, Signatures: Coreen Cardoza RN Emily Liu RN RN 3 Charles Barnes MD MD sp4 Juan Pablo Leyva RN RN jp4 Christiana Duarte [facility] Leatha Bolton Tylor ty Jordan, Krystal, RN RN kj2 Corrections: (The following items were deleted from the chart) 10/09 21:27 21:14 Initial Sepsis Screen: Does the patient meet any 2 criteria? No. Patient's kj2 initial sepsis screen is negative. Does the patient have a suspected source of infection? No. Patient's initial sepsis screen is negative. kj2 21:27 21:14 Risk Assessment: Do you want to hurt yourself or someone else? Patient reports no kj2 desire to harm self or others. kj2 21:27 21:14 Onset of symptoms was October 09, 2024 kj2 kj2 21:27 21:14 Acuity: ALEXIS 3 kj2 kj2 21:27 21:15 Ebola Screen: No symptoms or risks identified at this time. kj2 kj2 21:27 21:15 Coronavirus screen: At this time, the client does not indicate any symptoms kj2 associated with coronavirus-19. kj2 22:53 20:36 Acuity: ALEXIS 3 kj2 lg3 10/10 00:23 12 20:36 Chief complaint: kj2 lg3 10/10 00:24 12 21:14 patient is refusing vital signs at this time. aware. Will re-attempt lg3 once the patient appears more calm and willing to participate in care; jp4 10/10 00:29 10/09 21:40 Neuro: jp4 lg3 10/10 00:52 10/09 21:16 General: see triage assessment. kj2 kj2 10/10 00:53 10/09 22:29 Reassessment: Patient appears in no apparent distress at this time. Patient kj2 and/or family updated on plan of care and expected duration. Pain level reassessed. Patient is alert, oriented x 3, equal unlabored respirations, skin warm/dry/pink. kj2 10/10 00:53 12 22:00 General: see triage assessment. kj2 2 10/10 03:37 03:32 BP 110 / 70; Pulse 70bpm; Pulse Ox 99%; ty ty 03:40 03:39 Patient left the ED. 2 3 03:41 03:30 Patient [place] the ED. [place] [id number] 03:41 03:30 Transferred by ground EMS Transfer form completed. Note: [place] [id number] 03:41 03:30 Condition: stable [place] [address] 03:41 03:30 Instructed on the need for transfer, Demonstrated understanding of instructions, [place] [address] 03:42 03:30 Transferred by ground EMS Transfer form completed. Note: [place] [id number] 03:42 03:30 Condition: stable [place] [address] 03:42 03:30 Instructed on the need for transfer, Demonstrated understanding of instructions, [place] [id number]
--- NOTE | 2024-10-10 02:00 | EDPHYS ---
Physician Documentation [facility] Name: Juju Reis Age: 19 yrs Sex: Female : 2005 Arrival Date: 10/09/2024 Time: 20:36 Bed 19 Private MD: ED Physician Charles Barnes HPI: 10/09 20:48 This 19 yrs old Female presents to ER via Unassigned with complaints of sp4 Altered Mental Status, Doesn't Feel Right. 10/10 01:54 Patient is a 19-year-old female with history of bipolar disorder and anxiety presents sp4 with acute agitation and disruptive behavior and signs of acute psychosis. At home patient becomes angry unprovoked and causes disruption and furniture damage. Here in the emergency room on presentation patient began throwing chairs in the waiting area. Patient had to be subdued by the personnel. . Historical: - Home Meds: 10/09 21:10 Lexapro Oral [Active]; kj2 - PMHx: 21:12 Anxiety; Bipolar disorder; Depression; DID; kj2 - Immunization history:: Adult Immunizations unknown. - Infectious Disease History:: Denies. - Social history:: Smoking status: unknown. - Family history:: not pertinent. ROS: 10/10 01:54 Constitutional: Negative for fever, chills, and weight loss, Eyes: Negative for injury, sp4 pain, redness, and discharge, positive agitation positive disruptive behavior positive delusions All other systems are negative, Exam: 01:54 Constitutional: This is a well developed, well nourished patient who is awake, alert, sp4 and in no acute distress. Patient states she is here because she was brought here Head/Face: Normocephalic, atraumatic. Eyes: Pupils equal round and reactive to light, extra-ocular motions intact. Lids and lashes normal. Conjunctiva and sclera are not injected. Cornea within normal limits. Periorbital areas with no swelling, redness, or edema. ENT: Nares patent. No nasal discharge, no septal abnormalities noted. Tympanic membranes are normal and external auditory canals are clear. Oropharynx with no redness, swelling, or masses, exudates, or evidence of obstruction, uvula midline. Mucous membranes moist. Neck: Trachea midline, no thyromegaly or masses palpated, and no cervical lymphadenopathy. Supple, full range of motion without nuchal rigidity, or vertebral point tenderness. Chest/axilla: Normal chest wall appearance and motion. Nontender with no deformity. No lesions are appreciated. Cardiovascular: Regular rate and rhythm with a normal S1 and S2. No gallops, murmurs, or rubs. Normal PMI, no JVD. No pulse deficits. Respiratory: Lungs have equal breath sounds bilaterally, clear to auscultation and percussion. No rales, rhonchi or wheezes noted. No increased work of breathing, no retractions or nasal flaring. Abdomen/GI: Soft, with normal bowel sounds. No distension or tympany. No guarding or rebound. No evidence of tenderness throughout. Back: No spinal tenderness. No costovertebral tenderness. Skin: Warm, dry with normal turgor. Normal color with no rashes, and no evidence of cellulitis. Positive multiple excoriations to bilateral hands MS/ Extremity: Pulses equal, no cyanosis. Neurovascular intact. Full, normal range of motion. Neuro: Awake and alert, GCS 15, oriented to person, place, Cranial nerves II-XII grossly intact. Motor strength 5/5 in all extremities. Sensory grossly intact. Visibly agitated and upset Psych: Awake, alert, with orientation to person, place, patient is visibly agitated and upset restless 02:08 ECG was reviewed by the Attending Physician. EKG at 0206 sp4 Vital Signs: 10/09 21:04 lg3 22:29 BP 130 / 52; Pulse 75; Resp 15; Temp 97.8(T); Pulse Ox 99% on R/A; Weight 58.97 kg; ty Height 5 ft. 8 in. ; Pain 11/09; 10/10 03:20 BP 110 / 70; Pulse 70; Temp 98.2(T); Pulse Ox 99% ; ty 10/09 22:29 Body Mass Index 19.77 (58.97 kg, 172.72 cm) ty 22:29 Pain Scale: Adult ty 10/09 21:04 patient is refusing vital signs at this time. aware. Will re-attempt once the lg3 patient appears more calm and willing to participate in care [place] Coma Score: 10/10 01:54 Eye Response: spontaneous(4). Motor Response: obeys commands(6). Verbal Response: sp4 confused(4). Total: 14. MDM: 10/09 20:49 Medical Screening Exam initiated sp4 10/10 01:54 Differential Diagnosis: hypoglycemia, overdose, volume depletion. Data reviewed: vital sp4 signs, nurses notes, old medical records, lab test result(s). 03:40 Consideration of Admission/Observation Escalation of care including sp4 admission/observation considered. Management of patient was discussed with the following: [employer] Delivery Driver: accepting psychiatrist. ED course: Patient was [facility] to [facility] without incident.. 10/09 21:08 Order name: Acetaminophen Level; Complete Time: 01:16 EDMS 10/09 21:08 Order name: Basic Metabolic Panel; Complete Time: :16 EDMS 10/09 21:08 Order name: CBC with Automated Diff; Complete Time: :16 EDMS 10/09 21:08 Order name: Alcohol Serum/Plasma; Complete Time: 01:16 EDMS 10/09 21:08 Order name: Liver (Hepatic) Function; Complete Time: 01:16 EDMS 10/09 21:08 Order name: Protime (+INR); Complete Time: 01:16 EDMS 10/09 21:08 Order name: Test, Urine; Complete Time: 01:16 EDMS 10/09 21:08 Order name: PTT, Activated Partial Thromb; Complete Time: :16 EDMS 10/09 21:08 Order name: Salicylates Level; Complete Time: 01:16 EDMS 10/09 21:08 Order name: Urinalysis w/ reflexes; Complete Time: 01:16 EDMS 10/09 21:08 Order name: Urine Drug Screen; Complete Time: 01:16 EDMS 10/09 21:06 Order name: IV Saline Lock; Complete Time: 22:36 sp4 10/09 21:06 Order name: Labs collected and sent; Complete Time: 22:36 sp4 10/09 21:06 Order name: Suicide Screening ([place]); Complete Time: 03:44 sp4 EC:06 Rate is 58 beats/min. Rhythm is regular, Sinus bradycardia. QRS [place] is Normal. [place] sp4 interval is normal. QRS interval is normal. QT interval is normal. No Q waves. T waves are Normal. No ST changes noted. Clinical impression: No evidence of ischemia. Interpreted by me. Reviewed by me. Administered Medications: 10/09 21:27 Drug: Geodon IM 40 mg IM once Route: IM; Site: left gluteus; lg3 22:02 Follow up: Response: No adverse reaction kj2 Disposition Summary: 10/10/24 01:59 Transfer Ordered Notes: Transfer Location: Psych Facility sp4 Reason: Higher level of care sp4 Condition: Stable sp4 Problem: new sp4 Symptoms: have improved sp4 Accepting Physician: Accepting psychiatrist(10/10/24 03:39) kj2 Diagnosis - Restlessness and agitation sp4 - Delusional disorder, restlessness and agitation, emotional upset, disruptive and sp4 violent behavior Discharge Instructions: - Discharge Summary Sheet kmf Forms: - Medication Reconciliation Form sp4 - SBAR form sp4 - Medication Reconciliation Form kmf - SBAR form kmf Signatures: Dispatcher [employer] EDEmily Parekh RN RN lg3 Charles Barnes MD MD sp4 Michelle Doran RN RN kj2 Corrections: (The following items were deleted from the chart) 21:08 21:08 ACETAMINOPHEN+C.LAB.BRZ ordered. EDMS EDMS 21:08 21:08 BASIC METABOLIC PANEL+C.LAB.BRZ ordered. EDMS EDMS 21:08 21:08 CBC+H.LAB.BRZ ordered. EDMS EDMS 21:08 21:08 ETHANOL+C.LAB.BRZ ordered. EDMS EDMS 21:08 21:08 HEPATIC FUNCTION+C.LAB.BRZ ordered. EDMS EDMS 21:08 21:08 PROTIME (+INR)+COAG.LAB.BRZ ordered. EDMS EDMS 21:08 21:08 Test, Urine+UC.LAB.BRZ ordered. EDMS EDMS 21:08 21:08 PTT, ACTIVATED+COAG.LAB.BRZ ordered. EDMS EDMS 21:08 21:08 SALICYLATE+C.LAB.BRZ ordered. EDMS EDMS 21:08 21:08 Urinalysis+U.LAB.BRZ ordered. EDMS EDMS 21:08 21:08 URINE DRUG SCREEN+UC.LAB.BRZ ordered. EDMS EDMS 10/10 03:39 01:59 Accepting psychiatrist sp4 kj2
--- NOTE | 2024-10-12 15:53 | EKG ---
Test Date: 2024-10-10 Test Time: 02:06:00 Weatherization Field Technician: CHRIS MEASUREMENT RESULTS: Intervals: Rate: 58 DC: 152 QRSD: 100 QT: 396 QTc: 388 [place]: P: 52 DC: 152 QRS: 81 T: 61 INTERPRETIVE STATEMENTS: Sinus bradycardia ST elevation, probably due to early repolarization Borderline ECG Compared to ECG 02/26/2024 16:43:47 ST (T wave) deviation now present Early repolarization now present Sinus rhythm no longer present Sinus arrhythmia no longer present T-wave abnormality no longer present Electronically Signed On 10-12-24 15:49:13 PRECISION INSTRUMENT MAKER by Jin Zhang
== END 2024-10-10 03:39 ==
LOC: ER 20:36
DX: R45.1 Restlessness and agitation (principal); F22 Delusional disorders; R45.6 Violent behavior; R45.89 Other symptoms and signs involving emotional state
CPT/HCPCS: 36415; 80048; 80076; 80143; 80179; 80307; 81003; 81025; 82077; 85025; 85610; 85730; 93005; 96372; 99285